=== PATIENT | female | born 1975 | race American Indian/Alaskan Native ===

== ENCOUNTER 2017-06-30 15:59 | Outpatient (CLI) | payer MEDICAID ==
[2017-06-30 17:31] LABS: Bacteria,Urine 3+ /HPF (Negative); Bilirubin,Urine NEG (Negative); Blood,Urine NEG (Negative); Color,Urine Yellow (Yellow); Mucus,Urine FEW /HPF; Protein,Urine <15 mg/dL mg/dL (Negative); Urobilinogen,Urine < 2.0 mg/dL (<2.0)
[2017-06-30 18:51] VITALS: BP 122/56
== END 2017-06-30 19:15 | disposition home or self-care (01) ==
LOC: TRG 15:59
PROVIDERS: ATTEND Obstetrics & Gynecology
DX: O47.03 False labor before 37 completed weeks of gestation, third trimester (principal); Z3A.30 30 weeks gestation of pregnancy
CPT/HCPCS: 59025; 81001

== ENCOUNTER 2017-08-21 00:55 | Outpatient (CLI) | payer MEDICAID ==
[2017-08-21 01:59] VITALS: BP 124/75
== END 2017-08-21 02:06 | disposition home or self-care (01) ==
LOC: TRG 00:55
PROVIDERS: ATTEND Obstetrics & Gynecology
DX: O62.9 Abnormality of forces of labor, unspecified (principal); Z3A.38 38 weeks gestation of pregnancy
CPT/HCPCS: 59025

== ENCOUNTER 2017-08-26 10:29 | Inpatient (IN) | payer MEDICAID ==
[2017-08-26] MEDS ORDERED: STADOL IV PRN (12:17)
[2017-08-26] MEDS ORDERED: BRETHINE IVP PRN ×2 (12:17→12:25)
[2017-08-26] MEDS ORDERED: MINERAL OIL PO PRN ×2 (12:17→12:25)
[2017-08-26] MEDS ORDERED: BRETHINE SUB-Q PRN ×2 (12:17→12:25)
[2017-08-26] MEDS ORDERED: XYLOCAINE 2% INFILTRATI ONE ×2 (12:17→12:25)
[2017-08-26] MEDS ORDERED: CERVIDIL VG ONE (12:17)
[2017-08-26] MEDS ORDERED: SUBLIMAZE IV PRN (12:17)
[2017-08-26] MEDS ORDERED: ePHEDrine SULFATE IV PRN ×2 (12:17→12:25)
[2017-08-26] MEDS ORDERED: NARCAN 0.4 MG/1 ML IV PRN (12:25)
[2017-08-26] MEDS ORDERED: ZOFRAN IV PRN (12:25)
--- NOTE | 2017-08-26 12:25 | History and Physical Report ---
History of Present Illness Date of examination: 08/26/17 Date of admission: 08/26/17 10:29 Chief complaint: Induction of labor History of present illness: Pt is a 41yo BF EDC 09/07/17; EGA 38 2/7 weeks presents from [facility] office for induction of labor due to non-compliant GDM on Glyburide 5mg BID. BPP in office was 8/8 and DEVEN 10.49cm She received care at [facility] since 19 weeks and co-managed by [facility] for GDM, AMA and Morbid Obesity. records are available and GBS is Negative. Past History Past Medical History: diabetes (GDM; ), other (Morbid obesity; AMA) Past Surgical History: no surgical history [employer]PLICATIONS History: abnormal PAP smear, fibroids Family/Genetic History: diabetes, hypertension Social history: no significant social history, single - Obstetrical History Expected Date of Delivery: 09/07/17 Actual Gestation: 38 Week(s) 2 Day(s) : 5 Medications and Allergies Allergies Allergy/AdvReac Type Severity Reaction Status Date / Time shrimp Allergy Itching Verified 08/26/17 12:11 Home Medications Medication Instructions Recorded Confirmed Last Taken Type Docusate Sodium [Dok] 100 mg PO DAILY 06/30/17 08/26/17 08/12/17 History Ferrous Sulfate [Feosol] 325 mg PO BID 06/30/17 08/26/17 08/25/17 18:00 History Vit-Fe Fumar-FA [ 1 tab PO QDAY 06/30/17 08/26/17 08/25/17 09: 00 History Vitamin] Active Meds: Active Medications Butorphanol Tartrate (Stadol) 2 mg IV Q2H PRN PRN Reason: Pain , Severe (7-10) Ephedrine Sulfate (Ephedrine Sulfate) 10 mg IV Q2M PRN PRN Reason: Hypotension Fentanyl (Sublimaze) 100 mcg IV Q2H PRN PRN Reason: Labor Pain Lactated Ringer's (Lactated Ringers) 1,000 mls @ 125 mls/hr IV DIRECT BRIGIDO Oxytocin/Sodium Chloride (Pitocin/Ns 20 Unit/1000ml Drip) 20 units in 1,000 mls @ 125 mls/hr IV DIRECT BRIGIDO Oxytocin/Sodium Chloride (Pitocin/Ns 30 Unit/500ml) 30 units in 500 mls @ 1 mls /hr IV TITR BRIGIDO; Protocol Mineral Oil (Mineral Oil) 30 ml PO QHS PRN PRN Reason: Constipation Terbutaline Sulfate (Brethine) 0.25 mg SUB-Q ONCE PRN PRN Reason: Hyperstimulation/Hypertonicity Terbutaline Sulfate (Brethine) 0.25 mg IVP ONCE PRN PRN Reason: Hyperstimulation/Hypertonicity Review of Systems All systems: negative - Vital Signs Vital signs: Vital Signs Pulse BP Pulse Ox 81 123/75 98 08/26/17 11:12 08/26/17 11:12 08/26/17 11:12 Temp Pulse Resp BP Pulse Ox 81 120/76 95 08/26/17 12:23 08/26/17 12:23 08/26/17 12:23 - Physical Exam Breasts: Positive: deferred Cardiovascular: Regular rate Lungs: Positive: Clear to auscultation Abdomen: Positive: normal appearance Genitourinary (Female): Positive: normal external genitalia Uterus: Positive: enlarged Extremities: Positive: normal - Obstetrical FHR: category 1 Uterine Contraction Monitor Mode: External Cervical Dilatation: 1.5 (per nurse) Cervical Effacement Percentage: 50 (per nurse) station: -3 Uterine Contraction Pattern: Irregular Uterine Tone Measurement Phase: Contraction Uterine Contraction Intensity: Mild Results Result Diagrams: 08/26/17 11:57 08/26/17 11:57 All other labs normal. Ultrasound: report reviewed Assessment and Plan - Patient Problems (1) 38 weeks gestation of Onset Date: 08/26/17 Current Visit: Yes Status: Acute Plan to address problem: A: IUP @ 38 3/7 weeks GDM - uncontrolled on Glyburide 5mg BID AMA Morbid obesity P: Admit for cervidil/pitocin induction per [facility] BS monitoring (2) GDM (gestational diabetes mellitus) Onset Date: 08/26/17 Current Visit: Yes Status: Acute Qualifiers: Gestational diabetes mellitus control: oral hypoglycemic-controlled Trimester: third trimester Qualified Code(s): O24.415 - Gestational diabetes mellitus in , controlled by oral hypoglycemic drugs (3) AMA (advanced maternal age) multigravida 35+ Onset Date: 08/26/17 Current Visit: Yes Status: Acute Qualifiers: Trimester: third trimester Qualified Code(s): O09.523 - Supervision of elderly multigravida, third trimester (4) Morbid obesity with BMI of 40.0-44.9, adult Onset Date: 08/26/17 Current Visit: Yes Status: Chronic (5) UTI (urinary tract infection) in in third trimester Onset Date: 08/26/17 Current Visit: Yes Status: Acute
[2017-08-26] MEDS ORDERED: PITOCin/NS 20 UNIT/1000ML DRIP 20 UNITS/1,000 ML BAG IV SCH ×2 (13:00)
[2017-08-26] MEDS ORDERED: PITOCin/NS 30 UNIT/500ML 30 UNITS/500 ML BAG IV SCH ×3 (13:00)
[2017-08-26] MEDS ORDERED: LACTATED RINGERS 1,000 ML IV SCH ×2 (13:00)
[2017-08-26 13:50] LABS: Hematocrit 33.8 % (30.3-42.9); Hemoglobin 11.5 gm/dl (10.1-14.3); Mean Corpuscular HGB Conc 34 % (30-34); Mean Corpuscular Hemoglobin 33 pg (28-32); Mean Corpuscular Volume 97 fl (79-97); Platelet Count 199 K/mm3 (140-440); Red Cell Distribution Width 13.5 % (13.2-15.2)
[2017-08-26 14:09] LABS: Alanine Aminotransferase 11 units/L (7-56)
[2017-08-26 14:14] LABS: Uric Acid 5.4 mg/dL (3.5-7.6)
[2017-08-26 16:50] LABS: Bacteria,Urine 1+ /HPF (Negative); Bilirubin,Urine NEG (Negative); Blood,Urine SM (Negative); Color,Urine Yellow (Yellow); Mucus,Urine FEW /HPF; Protein,Urine <15 mg/dL mg/dL (Negative); Urobilinogen,Urine < 2.0 mg/dL (<2.0)
[2017-08-26] MEDS ORDERED: ceFAZolin 2 GM in NACL 0.9% 100 ML IV ONE (20:02)
[2017-08-26] MEDS ORDERED: ANCEF/STERILE WATER 2 GM/20 ML 2 GM/20 ML SYRINGE IV ONE (21:00)
[2017-08-27] MEDS ORDERED: ANCEF/NS 1 GM/50 ML 1 GM/50 ML BAG IV SCH (04:00)
[2017-08-27] MEDS: ANCEF/NS 1 GM/50 ML 1 GM/50 ML BAG IV SCH ×2 (07:51→23:14)
--- NOTE | 2017-08-27 08:55 | Progress Note ---
Assessment and Plan - Patient Problems (1) 38 weeks gestation of Onset Date: 08/26/17 Current Visit: Yes Status: Acute Plan to address problem: A: IUP @ 38 4/7 weeks GDM - uncontrolled on Glyburide 5mg BID AMA Morbid obesity P: Continue with pitocin induction per [facility] Expectant vaginal delivery BS monitoring (2) GDM (gestational diabetes mellitus) Onset Date: 08/26/17 Current Visit: Yes Status: Acute Qualifiers: Gestational diabetes mellitus control: oral hypoglycemic-controlled Trimester: third trimester Qualified Code(s): O24.415 - Gestational diabetes mellitus in , controlled by oral hypoglycemic drugs (3) AMA (advanced maternal age) multigravida 35+ Onset Date: 08/26/17 Current Visit: Yes Status: Acute Qualifiers: Trimester: third trimester Qualified Code(s): O09.523 - Supervision of elderly multigravida, third trimester (4) Morbid obesity with BMI of 40.0-44.9, adult Onset Date: 08/26/17 Current Visit: Yes Status: Chronic (5) UTI (urinary tract infection) in in third trimester Onset Date: 08/26/17 Current Visit: Yes Status: Acute Subjective - Subjective Date of service: 08/27/17 Principal diagnosis: IUP @ 38 4/7 weeks; GDM; AMA; MO Interval history: Pt is a 41yo BF EDC 09/07/17; EGA 38 4/7 weeks presented from [facility] office for induction of labor due to non-compliant GDM on Glyburide 5mg BID. BPP was office was 8/8 and was DEVEN 10.49cm She received care at [facility] since 19 weeks and co-managed by [facility] for GDM, AMA and Morbid Obesity. records are available and GBS was Negative. She is currently on pitocin 6mu/min and gianluca q 3-4 mins with SROM clear fluid. Patient reports: loss of fluid (SROM), movement normal, contractions, no new complaints, no vaginal bleeding Objective - Vital Signs Vital Signs: Vital Signs - 12hr 08/26/17 08/26/17 08/26/17 21:06 23:00 23:41 Temperature 98.5 F Pulse Rate 75 Respiratory 16 Rate Blood Pressure 115/58 O2 Sat by Pulse Oximetry 08/26/17 08/26/17 08/26/17 23:49 23:54 23:59 Temperature Pulse Rate 67 96 H 83 Respiratory Rate Blood Pressure 120/68 O2 Sat by Pulse 100 99 Oximetry 08/27/17 08/27/17 08/27/17 00:04 00:09 00:14 Temperature Pulse Rate 78 74 70 Respiratory Rate Blood Pressure O2 Sat by Pulse 98 97 98 Oximetry 08/27/17 08/27/17 08/27/17 00:19 00:24 00:29 Temperature Pulse Rate 72 73 71 Respiratory Rate Blood Pressure O2 Sat by Pulse 97 97 97 Oximetry 08/27/17 08/27/17 08/27/17 00:34 00:39 00:41 Temperature Pulse Rate 71 80 82 Respiratory Rate Blood Pressure O2 Sat by Pulse 97 98 91 Oximetry 08/27/17 08/27/17 08/27/17 00:44 00:49 00:54 Temperature Pulse Rate 85 76 74 Respiratory Rate Blood Pressure 121/71 O2 Sat by Pulse 98 98 98 Oximetry 08/27/17 08/27/17 08/27/17 00:55 00:59 01:04 Temperature Pulse Rate 87 76 79 Respiratory Rate Blood Pressure O2 Sat by Pulse 82 L 98 98 Oximetry 08/27/17 08/27/17 08/27/17 01:09 01:14 01:19 Temperature Pulse Rate 82 67 76 Respiratory Rate Blood Pressure O2 Sat by Pulse 99 96 97 Oximetry 08/27/17 08/27/17 08/27/17 01:24 01:29 01:34 Temperature Pulse Rate 79 69 70 Respiratory Rate Blood Pressure O2 Sat by Pulse 97 96 96 Oximetry 08/27/17 08/27/17 08/27/17 01:39 01:44 01:49 Temperature Pulse Rate 72 69 74 Respiratory Rate Blood Pressure 113/66 O2 Sat by Pulse 96 97 97 Oximetry 08/27/17 08/27/17 08/27/17 01:54 01:59 02:04 Temperature Pulse Rate 76 75 74 Respiratory Rate Blood Pressure O2 Sat by Pulse 99 97 96 Oximetry 08/27/17 08/27/17 08/27/17 02:09 02:11 02:14 Temperature Pulse Rate 73 75 77 Respiratory Rate Blood Pressure O2 Sat by Pulse 95 94 93 Oximetry 08/27/17 08/27/17 08/27/17 02:19 02:24 02:26 Temperature Pulse Rate 77 75 Respiratory Rate Blood Pressure O2 Sat by Pulse 93 92 94 Oximetry 08/27/17 08/27/17 08/27/17 02:29 02:34 02:39 Temperature Pulse Rate 80 80 75 Respiratory Rate Blood Pressure O2 Sat by Pulse 97 97 98 Oximetry 08/27/17 08/27/17 08/27/17 02:44 02:49 02:50 Temperature Pulse Rate 77 74 72 Respiratory Rate Blood Pressure 110/53 O2 Sat by Pulse 98 99 Oximetry 08/27/17 08/27/17 08/27/17 02:54 02:59 03:04 Temperature Pulse Rate 80 74 74 Respiratory Rate Blood Pressure O2 Sat by Pulse 98 98 98 Oximetry 08/27/17 08/27/17 08/27/17 03:09 03:14 03:19 Temperature Pulse Rate 74 76 67 Respiratory Rate Blood Pressure O2 Sat by Pulse 99 97 98 Oximetry 08/27/17 08/27/17 08/27/17 03:24 03:29 03:34 Temperature Pulse Rate 76 70 68 Respiratory Rate Blood Pressure O2 Sat by Pulse 97 98 98 Oximetry 08/27/17 08/27/17 08/27/17 03:39 03:50 03:55 Temperature Pulse Rate 73 73 88 Respiratory Rate Blood Pressure O2 Sat by Pulse 97 98 97 Oximetry 08/27/17 08/27/17 08/27/17 04:00 04:05 04:10 Temperature Pulse Rate 75 69 86 Respiratory Rate Blood Pressure O2 Sat by Pulse 97 98 98 Oximetry 08/27/17 08/27/17 08/27/17 04:24 04:29 04:32 Temperature Pulse Rate 75 76 73 Respiratory Rate Blood Pressure 131/76 O2 Sat by Pulse 99 98 Oximetry 08/27/17 08/27/17 08/27/17 04:34 04:39 04:44 Temperature Pulse Rate 73 81 74 Respiratory Rate Blood Pressure O2 Sat by Pulse 99 98 98 Oximetry 08/27/17 08/27/17 08/27/17 04:49 04:50 04:54 Temperature Pulse Rate 68 73 75 Respiratory Rate Blood Pressure 118/70 O2 Sat by Pulse 98 97 Oximetry 08/27/17 08/27/17 08/27/17 04:59 05:19 05:24 Temperature Pulse Rate 71 69 78 Respiratory Rate Blood Pressure O2 Sat by Pulse 97 97 97 Oximetry 08/27/17 08/27/17 08/27/17 05:29 05:34 05:38 Temperature Pulse Rate 76 70 84 Respiratory Rate Blood Pressure O2 Sat by Pulse 97 95 94 Oximetry 08/27/17 08/27/17 08/27/17 05:39 05:44 05:48 Temperature Pulse Rate 77 71 80 Respiratory Rate Blood Pressure O2 Sat by Pulse 96 95 94 Oximetry 08/27/17 08/27/17 08/27/17 05:49 05:54 05:57 Temperature Pulse Rate 75 78 77 Respiratory Rate Blood Pressure 129/73 O2 Sat by Pulse 94 95 94 Oximetry 08/27/17 08/27/17 08/27/17 05:59 06:04 06:09 Temperature Pulse Rate 74 93 H 70 Respiratory Rate Blood Pressure O2 Sat by Pulse 95 96 98 Oximetry 08/27/17 08/27/17 08/27/17 06:14 06:19 06:24 Temperature Pulse Rate 74 72 79 Respiratory Rate Blood Pressure O2 Sat by Pulse 97 97 96 Oximetry 08/27/17 08/27/17 08/27/17 06:29 06:34 06:39 Temperature Pulse Rate 76 69 79 Respiratory Rate Blood Pressure O2 Sat by Pulse 97 97 98 Oximetry 08/27/17 08/27/17 08/27/17 06:44 06:49 07:07 Temperature Pulse Rate 56 L 73 72 Respiratory Rate Blood Pressure 134/75 O2 Sat by Pulse 78 L 96 97 Oximetry 08/27/17 08/27/17 08/27/17 07:12 07:22 07:37 Temperature 98.3 F Pulse Rate 83 75 Respiratory Rate Blood Pressure O2 Sat by Pulse 96 97 Oximetry 08/27/17 08/27/17 08/27/17 07:49 07:52 08:07 Temperature Pulse Rate 72 70 79 Respiratory Rate Blood Pressure 138/76 O2 Sat by Pulse 97 97 Oximetry 08/27/17 08:22 Temperature Pulse Rate 74 Respiratory Rate Blood Pressure O2 Sat by Pulse 99 Oximetry - Exam Abdomen: Present: normal appearance, soft FHR: category 1 Uterine Contraction Monitor Mode: External Cervical Dilatation: 2 (per nurse) Cervical Effacement Percentage: 50 (per nurse) station: -2 Uterine Contraction Pattern: Regular Uterine Tone Measurement Phase: Contraction Uterine Contraction Intensity: Moderate - Labs Labs: Abnormal Labs 08/26/17 08/26/17 11:57 11:57 RBC 3.50 L MCH 33 H Creatinine 0.6 L Lactate Dehydrogenase 204 H Laboratory Results - last 24 hr 08/26/17 08/26/17 08/26/17 11:57 11:57 11:57 WBC 5.2 RBC 3.50 L Hgb 11.5 Hct 33.8 MCV 97 MCH 33 H MCHC 34 RDW 13.5 Plt Count 199 Creatinine 0.6 L Estimated GFR > 60 POC Glucose Uric Acid 5.4 AST 17 ALT 11 Lactate Dehydrogenase 204 H Urine Color Urine Turbidity Urine pH Ur Specific [place] Urine Protein Urine Glucose (UA) Urine Ketones Urine Blood Urine Nitrite Urine Bilirubin Urine Urobilinogen Ur Leukocyte Esterase Urine WBC (Auto) Urine RBC (Auto) U Epithel Cells (Auto) Urine Bacteria (Auto) Urine Mucus Hep Bs Antigen Blood Type A POSITIVE Antibody Screen Negative 08/26/17 08/26/17 08/26/17 13:08 16:01 17:09 WBC RBC Hgb Hct MCV MCH MCHC RDW Plt Count Creatinine Estimated GFR POC Glucose 100 103 Uric Acid AST ALT Lactate Dehydrogenase Urine Color Yellow Urine Turbidity Clear Urine pH 5.0 Ur Specific [place] 1.013 Urine Protein <15 mg/dl Urine Glucose (UA) Neg Urine Ketones Neg Urine Blood Sm Urine Nitrite Pos Urine Bilirubin Neg Urine Urobilinogen < 2.0 Ur Leukocyte Esterase Neg Urine WBC (Auto) 4.0 Urine RBC (Auto) 2.0 U Epithel Cells (Auto) 1.0 Urine Bacteria (Auto) 1+ Urine Mucus Few Hep Bs Antigen Blood Type Antibody Screen 08/26/17 08/26/17 08/27/17 22:00 23:15 07:12 WBC RBC Hgb Hct MCV MCH MCHC RDW Plt Count Creatinine Estimated GFR POC Glucose 94 96 Uric Acid AST ALT Lactate Dehydrogenase Urine Color Urine Turbidity Urine pH Ur Specific [place] Urine Protein Urine Glucose (UA) Urine Ketones Urine Blood Urine Nitrite Urine Bilirubin Urine Urobilinogen Ur Leukocyte Esterase Urine WBC (Auto) Urine RBC (Auto) U Epithel Cells (Auto) Urine Bacteria (Auto) Urine Mucus Hep Bs Antigen Non-reactive Blood Type Antibody Screen
[2017-08-27] MEDS ORDERED: ePHEDrine SULFATE IV PRN (10:58)
[2017-08-27] MEDS ORDERED: NARCAN 2 MG/2 ML IV PRN (10:58)
--- NOTE | 2017-08-27 10:58 | Anesthesia Consultation ---
Anesthesia Consult and Med Hx Date of service: 08/27/17 - Airway Anesthetic Teeth Evaluation: Good ROM Head & Neck: Adequate Mental/Hyoid Distance: Adequate Mallampati Class: Class III Intubation Access Assessment: Possibly Difficult - Pre-Operative Health Status ASA Pre-Surgery Classification: ASA3 Proposed Anesthetic Plan: Epidural, Spinal - Pulmonary Hx Asthma: No COPD: No Hx Pneumonia: No - Cardiovascular System Hx Hypertension: No - Central Nervous System Hx Seizures: No Hx Psychiatric Problems: No - Endocrine Hx Renal Disease: No Hx End Stage Renal Disease: No Hx Hypothyroidism: No Hx Hyperthyroidism: No - Hematic Hx Anemia: Yes Hx Sickle Cell Disease: No - Other Systems Hx Alcohol Use: No Hx Obesity: Yes (BMI 44.0)
[2017-08-27] MEDS ORDERED: fentaNYL-BUPIV 2 MCG/ML-0.125% 200 MCG/100 ML BAG EPIDURAL SCH (11:00)
[2017-08-27] MEDS ORDERED: XYLOCAINE MPF 2% ONE (14:06)
--- NOTE | 2017-08-27 15:32 | Procedure Note ---
OB Delivery Note - Delivery Date of Delivery: 08/27/17 Surgeon: LEROY ZAZUETA Estimated blood loss: 100cc - Vaginal Delivery presentation: vertex Delivery position: OA Intrapartum events: PROM->1hr before delivery Delivery induction: cervidil Delivery augmentation: rupture of membranes, pitocin Delivery monitor: external FHT, external uterine Route of delivery: Delivery placenta: spontaneous Delivery cord: 3 umbilical vessels Episiotomy: none Delivery laceration: none Anesthesia: epidural Delivery comments: Infant delivered OA and placed on Mom's chest for [id number] bonding and delayed cord clamping, cut by Dad - Infant A at 1 minute: 10 at 5 minutes: 10 Infant Gender: Female (3582gms)
[2017-08-27] MEDS ORDERED: BENADRYL PO PRN (15:35)
[2017-08-27] MEDS ORDERED: ZOFRAN IV PRN (15:35)
[2017-08-27] MEDS ORDERED: MILK OF MAGNESIA PO PRN (15:35)
[2017-08-27] MEDS ORDERED: LANSINOH TP PRN (15:35)
[2017-08-27] MEDS ORDERED: PHENERGAN PR PRN (15:35)
[2017-08-27] MEDS ORDERED: PHENERGAN PO PRN (15:35)
[2017-08-27] MEDS ORDERED: TYLENOL PO PRN (15:35)
[2017-08-27] MEDS ORDERED: TUCKS PAD TP PRN (15:35)
[2017-08-27] MEDS ORDERED: DULCOLAX PR PRN (15:35)
[2017-08-27] MEDS ORDERED: PITOCin/NS 20 UNIT/1000ML DRIP 20 UNITS/1,000 ML BAG IV SCH (16:00)
[2017-08-27] MEDS ORDERED: SODIUM CHLORIDE FLUSH SYRINGE 10 ML IV NR (16:00)
[2017-08-27] MEDS: MOTRIN PO SCH ×2 (18:25→23:12)
[2017-08-27] MEDS: NORCO 5/325 PO PRN (18:25)
[2017-08-27] MEDS: FEOSOL PO SCH (23:24)
[2017-08-27] MEDS: COLACE PO SCH (23:24)
[2017-08-27] MEDS ORDERED: NACL 0.9% 500 ML 500 ML IV SCH (23:45)
[2017-08-28] MEDS: MOTRIN PO SCH ×2 (06:20→11:24)
[2017-08-28 08:34] LABS: Hematocrit 32.3 % (30.3-42.9)
--- NOTE | 2017-08-28 10:01 | Progress Note ---
Assessment and Plan - Patient Problems (1) 38 weeks gestation of Onset Date: 08/26/17 Current Visit: Yes Status: Resolved (2) GDM (gestational diabetes mellitus) Onset Date: 08/26/17 Current Visit: Yes Status: Chronic Qualifiers: Gestational diabetes mellitus control: oral hypoglycemic-controlled Trimester: third trimester Qualified Code(s): O24.415 - Gestational diabetes mellitus in , controlled by oral hypoglycemic drugs (3) AMA (advanced maternal age) multigravida 35+ Onset Date: 08/26/17 Current Visit: Yes Status: Chronic Qualifiers: Trimester: third trimester Qualified Code(s): O09.523 - Supervision of elderly multigravida, third trimester (4) Morbid obesity with BMI of 40.0-44.9, adult Onset Date: 08/26/17 Current Visit: Yes Status: Chronic (5) UTI (urinary tract infection) in in third trimester Onset Date: 08/26/17 Current Visit: Yes Status: Resolved (6) (normal spontaneous vaginal delivery) Onset Date: 08/28/17 Current Visit: Yes Status: Resolved Plan to address problem: A: S/P - PPD #1 Doing well GDM - stable UTI - improved P: May go home today Subjective - Subjective Date of service: 08/28/17 Principal diagnosis: s/p - PPD #1 Interval history: Pt is feeling well without complaints. Bleeding improved. Patient reports: appetite normal, voiding normally, pain well controlled, flatus , ambulating normally, no dizzy ambulation, no nauseated [place]: doing well, nursing well Objective - Vital Signs Latest vital signs: Vital Signs Temp Pulse Resp BP BP Pulse Ox 08/28/17 04:00 98.6 F 76 18 120/79 08/28/17 00:00 98.7 F 68 18 126/69 08/27/17 20:30 98.6 F 81 18 115/68 08/27/17 16:51 70 144/81 08/27/17 16:36 67 144/81 08/27/17 16:21 71 145/81 08/27/17 16:06 70 139/79 08/27/17 15:51 72 141/82 08/27/17 15:36 80 138/76 08/27/17 15:30 98.8 F 08/27/17 15:22 114 H 145/80 07/17/18 15:06 73 111/55 07/17/18 14:51 68 119/55 07/17/18 14:36 81 116/58 07/17/18 14:21 87 133/74 07/17/18 14:12 71 100 07/17/18 14:06 75 125/70 07/17/18 13:57 70 100 07/17/18 13:52 68 124/70 07/17/18 13:42 70 100 07/17/18 13:36 64 131/71 07/17/18 13:30 98.9 F 17/18 13:27 75 100 07/17/18 13:21 68 136/75 07/17/18 13:12 81 98 /17/18 13:06 75 140/77 07/17/18 12:57 68 100 07/17/18 12:53 63 134/70 07/17/18 12:42 67 100 07/17/18 12:36 71 140/71 0717/18 12:27 70 100 07/17/18 12:21 68 126/67 07/17/18 12:12 75 100 07/17/18 12:07 64 138/72 07/17/18 11:57 64 100 07/17/18 11:53 65 129/65 07/17/18 11:42 69 100 07/17/18 11:39 98.7 F 17/18 11:38 76 126/65 07/17/18 11:33 75 133/73 07/17/18 11:31 71 127/73 17/18 11:27 83 142/79 99 17/18 11:24 75 132/76 0717/18 11:21 68 136/80 17/18 11:19 64 76 L 17/18 11:18 72 133/74 17/18 11:15 78 127/71 17/18 11:12 76 135/78 98 /17/18 10:50 66 130/80 07/17/18 10:26 72 138/80 Intake and Output 07/17/18 07/18/18 07/18/18 22:59 06:59 14:59 Intake Total 504.867 Output Total 2800 1400 Balance -2295.133 -1400 Intake: IV 4.867 PITOCin/NS 30 UNIT/500ML 4.867 30 units In 500 ml @ 4 mls/hr IV TITR BRIGIDO Rx#: [id number] Oral 200 Intake, Free Water 300 Output: Urine 2800 1400 Void 2800 1400 Other: Total, Intake Amount 200 Total, Output Amount 800 800 # Voids Void 1 1 Estimated Blood Loss 100 - Exam Breasts: Present: deferred Cardiovascular: Present: Regular rate Lungs: Present: Clear to auscultation Abdomen: Present: normal appearance, soft Uterus: Present: normal, firm, fundal height below umbilicus Extremities: Present: normal - Labs Labs: Abnormal lab results 08/27/17 08/28/17 Range/Units 13:26 01:37 POC Glucose 67 L 143 H (70-105) Laboratory Tests 08/26/17 08/26/17 08/26/17 11:57 11:57 11:57 WBC 5.2 RBC 3.50 L Hgb 11.5 Hct 33.8 MCV 97 MCH 33 H MCHC 34 RDW 13.5 Plt Count 199 Creatinine Estimated GFR POC Glucose Uric Acid AST ALT Lactate Dehydrogenase Urine Color Urine Turbidity Urine pH Ur Specific [place] Urine Protein Urine Glucose (UA) Urine Ketones Urine Blood Urine Nitrite Urine Bilirubin Urine Urobilinogen Ur Leukocyte Esterase Urine WBC (Auto) Urine RBC (Auto) U Epithel Cells (Auto) Urine Bacteria (Auto) Urine Mucus RPR Nonreactive Hep Bs Antigen Blood Type A POSITIVE Antibody Screen Negative 08/26/17 08/26/17 08/26/17 11:57 13:08 16:01 WBC RBC Hgb Hct MCV MCH MCHC RDW Plt Count Creatinine 0.6 L Estimated GFR > 60 POC Glucose 100 Uric Acid 5.4 AST 17 ALT 11 Lactate Dehydrogenase 204 H Urine Color Yellow Urine Turbidity Clear Urine pH 5.0 Ur Specific [place] 1.013 Urine Protein <15 mg/dl Urine Glucose (UA) Neg Urine Ketones Neg Urine Blood Sm Urine Nitrite Pos Urine Bilirubin Neg Urine Urobilinogen < 2.0 Ur Leukocyte Esterase Neg Urine WBC (Auto) 4.0 Urine RBC (Auto) 2.0 U Epithel Cells (Auto) 1.0 Urine Bacteria (Auto) 1+ Urine Mucus Few RPR Hep Bs Antigen Blood Type Antibody Screen 08/26/17 08/26/17 08/26/17 17:09 22:00 23:15 WBC RBC Hgb Hct MCV MCH MCHC RDW Plt Count Creatinine Estimated GFR POC Glucose 103 94 Uric Acid AST ALT Lactate Dehydrogenase Urine Color Urine Turbidity Urine pH Ur Specific [place] Urine Protein Urine Glucose (UA) Urine Ketones Urine Blood Urine Nitrite Urine Bilirubin Urine Urobilinogen Ur Leukocyte Esterase Urine WBC (Auto) Urine RBC (Auto) U Epithel Cells (Auto) Urine Bacteria (Auto) Urine Mucus RPR Hep Bs Antigen Non-reactive Blood Type Antibody Screen 08/27/17 08/27/17 08/28/17 07:12 13:26 01:37 WBC RBC Hgb Hct MCV MCH MCHC RDW Plt Count Creatinine Estimated GFR POC Glucose 96 67 L 143 H Uric Acid AST ALT Lactate Dehydrogenase Urine Color Urine Turbidity Urine pH Ur Specific [place] Urine Protein Urine Glucose (UA) Urine Ketones Urine Blood Urine Nitrite Urine Bilirubin Urine Urobilinogen Ur Leukocyte Esterase Urine WBC (Auto) Urine RBC (Auto) U Epithel Cells (Auto) Urine Bacteria (Auto) Urine Mucus RPR Hep Bs Antigen Blood Type Antibody Screen 08/28/17 08:08 WBC RBC Hgb 11.0 Hct 32.3 MCV MCH MCHC RDW Plt Count Creatinine Estimated GFR POC Glucose Uric Acid AST ALT Lactate Dehydrogenase Urine Color Urine Turbidity Urine pH Ur Specific [place] Urine Protein Urine Glucose (UA) Urine Ketones Urine Blood Urine Nitrite Urine Bilirubin Urine Urobilinogen Ur Leukocyte Esterase Urine WBC (Auto) Urine RBC (Auto) U Epithel Cells (Auto) Urine Bacteria (Auto) Urine Mucus RPR Hep Bs Antigen Blood Type Antibody Screen
[2017-08-28] MEDS: FEOSOL PO SCH (11:23)
[2017-08-28] MEDS: COLACE PO SCH (11:23)
[2017-08-28] MEDS: PRENATAL VITAMIN PO SCH (11:23)
--- NOTE | 2017-08-28 13:23 | Discharge Summary ---
Providers - Providers Date of Admission: 08/26/17 10:29 Date of discharge: 08/28/17 Attending physician: LEROY ZAZUETA Primary care physician: LEROY ZAZUETA Hospitalization Reason for admission: induction of labor, IUP at term Delivery: Episiotomy: none Laceration: none Other procedures: none complications: none Discharge diagnosis: IUP at term delivered [place] baby: female Hospital course: Unremarkable. Condition at discharge: Good Disposition: DC-01 TO HOME OR SELFCARE - Discharge Diagnoses (1) 38 weeks gestation of Status: Resolved (2) GDM (gestational diabetes mellitus) Status: Chronic Qualifiers: Gestational diabetes mellitus control: oral hypoglycemic-controlled Trimester: third trimester Qualified Code(s): O24.415 - Gestational diabetes mellitus in , controlled by oral hypoglycemic drugs (3) AMA (advanced maternal age) multigravida 35+ Status: Chronic Qualifiers: Trimester: third trimester Qualified Code(s): O09.523 - Supervision of elderly multigravida, third trimester (4) Morbid obesity with BMI of 40.0-44.9, adult Status: Chronic (5) UTI (urinary tract infection) in in third trimester Status: Resolved (6) (normal spontaneous vaginal delivery) Status: Resolved Plan - Discharge Medications Prescriptions: Ferrous Sulfate [Feosol 325 MG tab] 325 mg PO BID #60 tablet Ibuprofen [Motrin 600 MG tab] 600 mg PO Q6H #30 tablet Vit-Fe Fumar-FA [ Vitamin] 1 each PO QDAY #30 tablet - Provider Discharge Summary Activity: routine, no sex for 6 weeks, no heavy lifting 4 weeks, no strenuous exercise Diet: routine Instructions: routine Additional instructions: [] Smoking cessation referral if applicable(refer to patient education folder for contact #) [] Refer to [facility] Booklet Call your doctor immediately for: * Fever > 100.5 * Heavy vaginal bleeding ( >1 pad per hour) * Severe persistent headache * Shortness of breath * Reddened, hot, painful area to leg or breast * Drainage or odor from incision. * Keep incision clean and dry at all times and follow doctor's instructions regarding bathing/showering - Follow up plan Follow up: LEROY ZAZUETA MD [Primary Care Provider] - 6 Weeks
[2017-08-28] MEDS: NORCO 5/325 PO PRN (14:33)
[2017-08-28] MEDS ORDERED: BOOSTRIX IM ONE (15:41)
[2017-08-28] MEDS ORDERED: M-M-R II VACCINE SUB-Q ONE (15:41)
[2017-08-28 18:36] VITALS: BP 128/83
== END 2017-08-28 18:30 | disposition home or self-care (01) | DRG 774 ==
LOC: LD 10:29 → OB 08-27 17:37
PROVIDERS: ADMIT Obstetrics & Gynecology; ATTEND Obstetrics & Gynecology
PROC: 10E0XZZ Delivery of Products of Conception, External Approach (ICD-10-PCS; principal; 2017-08-27)
PROC: 3E0R3BZ Introduction of Anesthetic Agent into Spinal Canal, Percutaneous Approach (ICD-10-PCS; 2017-08-27)
PROC: 00HU33Z Insertion of Infusion Device into Spinal Canal, Percutaneous Approach (ICD-10-PCS; 2017-08-27)
PROC: 3E0P7VZ Introduction of Hormone into Female Reproductive, Via Natural or Artificial Opening (ICD-10-PCS; 2017-08-27)
PROC: 3E0234Z Introduction of Serum, Toxoid and Vaccine into Muscle, Percutaneous Approach (ICD-10-PCS; 2017-08-28)
DX: O24.415 Gestational diabetes mellitus in pregnancy, controlled by oral hypoglycemic drugs (principal); O75.3 Other infection during labor; E66.01 Morbid (severe) obesity due to excess calories; Z68.41 Body mass index [BMI] 40.0-44.9, adult; Z71.3 Dietary counseling and surveillance; Z3A.38 38 weeks gestation of pregnancy; Z37.0 Single live birth; O99.214 Obesity complicating childbirth; Z82.49 Family history of ischemic heart disease and other diseases of the circulatory system; Z83.3 Family history of diabetes mellitus; Z91.14 Patient's other noncompliance with medication regimen; Z91.013 Allergy to seafood; O42.02 Full-term premature rupture of membranes, onset of labor within 24 hours of rupture; Z23 Encounter for immunization
CPT/HCPCS: 36415; 59200; 81001; 82565; 82962; 83615; 84450; 84460; 84550; 85014; 85018; 85027; 86592; 86706; 86850; 86900; 86901; 87086; 99211; G0463; J0595; J0690; J2590; J3010; J7040; J7120

== ENCOUNTER 2017-09-06 13:22 | Emergency (ER) | payer MEDICAID ==
[2017-09-06] MEDS ORDERED: ASPIRIN PO ONE (14:01)
[2017-09-06 15:06] LABS: Basophils % (Auto) 0.8 % (0.0-1.8); Eosinophils % (Auto) 0.7 % (0.0-4.3); Hematocrit 38.1 % (30.3-42.9); Hemoglobin 12.9 gm/dl (10.1-14.3); Lymphocytes # (Auto) 1.1 K/mm3 (1.2-5.4); Mean Corpuscular HGB Conc 34 % (30-34); Mean Corpuscular Hemoglobin 32 pg (28-32); Mean Corpuscular Volume 96 fl (79-97); Monocytes # (Auto) 0.3 K/mm3 (0.0-0.8); Monocytes % (Auto) 6.3 % (0.0-7.3); Platelet Count 243 K/mm3 (140-440); Red Blood Count 3.97 M/mm3 (3.65-5.03); Red Cell Distribution Width 13.4 % (13.2-15.2)
[2017-09-06 15:28] LABS: BUN/Creatinine Ratio 16; Blood Urea Nitrogen 11 mg/dL (7-17); Calcium 8.7 mg/dL (8.4-10.2); Hemolysis Index 1
[2017-09-06] MEDS ORDERED: CATAPRES PO ONE (16:07)
--- NOTE | 2017-09-06 16:09 | Emergency Department Report ---
Blank Doc - Documentation Documentation: Patient is a 5-year-old [place] female who is presenting with some mild chest tightness as well as some neck discomfort for the past day. Patient and taken her blood pressure at home as been elevated and she decided to come in for evaluation. Patient is 10 days . Patient did deliver here OB is Dr. Child. Patient is denying shortness of breath headache fevers chills nausea vomiting at this time. Patient be moved to a treatment room for further evaluation
[2017-09-06 18:47] LABS: Bilirubin,Urine NEG (Negative); Blood,Urine MOD (Negative); Color,Urine Yellow (Yellow); Protein,Urine <15 mg/dL mg/dL (Negative); Urobilinogen,Urine < 2.0 mg/dL (<2.0)
--- NOTE | 2017-09-06 20:00 | Cat Scan Report ---
FINAL REPORT EXAM: CT ANGIO CHEST HISTORY: pulmonary emboli TECHNIQUE: Following IV administration of 100 cc of Omnipaque 350 axial helical imaging was performed through the chest with maximum intensity projection images obtained. Comparison: None FINDINGS: There are small bilateral pleural fluid collections. There is no evidence of infiltrate or pneumothorax. The trachea and bronchi are patent. The heart is enlarged. The thoracic aorta is normal caliber. There is no evidence of intrathoracic adenopathy. No filling defects are demonstrated within the pulmonary arteries to suggest the presence of pulmonary artery emboli. The bony structures are notable for spondylitic change of the thoracic spine. The visualized portion of the upper abdomen is unremarkable. IMPRESSION: 1. Small bilateral pleural effusions. 2. No evidence of pulmonary artery emboli. 3. Cardiomegaly. 4. Spondylitic change thoracic spine.
--- NOTE | 2017-09-06 20:26 | Emergency Department Report ---
ED General Adult HPI - General Chief complaint: Chest Pain Stated complaint: HIGH BP,CHEST PAIN Time Seen by Provider: 09/06/17 16:02 Source: patient Mode of arrival: Ambulatory Limitations: No Limitations - History of Present Illness Initial comments: Patient presents to emergency department with a chief complaint of chest pain. The patient is 10 days status post vaginal delivery and has also knows that her blood pressure is elevated. Patient states she had no issues with blood pressure prior to or during her and only had a diagnosis of gestational diabetes during . She describes an uncomplicated . Patient states her blood pressure was 170/100 at [facility]. -: Sudden Radiation: non-radiation Severity scale (0 -10): 3 Consistency: constant Improves with: none Worsens with: none Associated Symptoms: denies other symptoms Treatments Prior to Arrival: none - Related Data Home Medications Medication Instructions Recorded Confirmed Last Taken Docusate Sodium [Dok] 100 mg PO DAILY 06/30/17 08/26/17 08/12/17 Ferrous Sulfate [Feosol] 325 mg PO BID 06/30/17 08/26/17 08/25/17 18:00 Vit-Fe Fumar-FA [ 1 tab PO QDAY 06/30/17 08/26/17 08/25/17 09: 00 Vitamin] Previous Rx's Medication Instructions Recorded Last Taken Type Ferrous Sulfate [Feosol 325 MG tab] 325 mg PO BID #60 tablet 08/28/17 Unknown Rx Ibuprofen [Motrin 600 MG tab] 600 mg PO Q6H #30 tablet 08/28/17 Unknown Rx Vit-Fe Fumar-FA [ 1 each PO QDAY #30 tablet 08/28/17 Unknown Rx Vitamin] Labetalol [Normodyne TAB] 100 mg PO BID #20 tablet 09/06/17 Unknown Rx Allergies Allergy/AdvReac Type Severity Reaction Status Date / Time shrimp Allergy Itching Verified 08/26/17 12:11 ED Review of Systems ROS: Stated complaint: HIGH BP,CHEST PAIN Other details as noted in HPI Comment: All other systems reviewed and negative Constitutional: denies: chills, fever Eyes: denies: eye pain, eye discharge, vision change ENT: denies: ear pain, throat pain Respiratory: denies: cough, shortness of breath, wheezing Cardiovascular: chest pain. denies: palpitations Endocrine: no symptoms reported Gastrointestinal: denies: abdominal pain, nausea, diarrhea Genitourinary: denies: urgency, dysuria, discharge Musculoskeletal: denies: back pain, joint swelling, arthralgia Skin: denies: rash, lesions Neurological: denies: headache, weakness, paresthesias Psychiatric: denies: anxiety, depression Hematological/Lymphatic: denies: easy bleeding, easy bruising ED Past Medical Hx - Past Medical History Hx Hypertension: No Hx Congestive Heart Failure: No Hx Diabetes: No Hx Deep Vein Thrombosis: No Hx Renal Disease: No Hx Sickle Cell Disease: No Hx Seizures: No Hx Asthma: No Hx COPD: No Hx HIV: No - Social History Smoking Status: Never Smoker Substance Use Type: None - Medications Home Medications: Home Medications Medication Instructions Recorded Confirmed Last Taken Type Docusate Sodium [Dok] 100 mg PO DAILY 06/30/17 08/26/17 08/12/17 History Ferrous Sulfate [Feosol] 325 mg PO BID 06/30/17 08/26/17 08/25/17 18:00 History Vit-Fe Fumar-FA [ 1 tab PO QDAY 06/30/17 08/26/17 08/25/17 09: 00 History Vitamin] Ferrous Sulfate [Feosol 325 MG tab] 325 mg PO BID #60 tablet 08/28/17 Unknown Rx Ibuprofen [Motrin 600 MG tab] 600 mg PO Q6H #30 tablet 08/28/17 Unknown Rx Vit-Fe Fumar-FA [ 1 each PO QDAY #30 tablet 08/28/17 Unknown Rx Vitamin] Labetalol [Normodyne TAB] 100 mg PO BID #20 tablet 09/06/17 Unknown Rx ED Physical Exam - General Limitations: No Limitations General appearance: alert, in no apparent distress - Head Head exam: Present: atraumatic, normocephalic - Eye Eye exam: Present: normal appearance, PERRL, EOMI. Absent: scleral icterus, conjunctival injection, periorbital swelling - ENT ENT exam: Present: mucous membranes moist - Neck Neck exam: Present: normal inspection, full ROM - Respiratory Respiratory exam: Present: normal lung sounds bilaterally. Absent: respiratory distress, wheezes, rales, rhonchi - Cardiovascular Cardiovascular Exam: Present: regular rate, normal rhythm. Absent: systolic murmur, diastolic murmur, rubs, gallop - GI/Abdominal GI/Abdominal exam: Present: soft, normal bowel sounds. Absent: distended, tenderness - Rectal Rectal exam: Present: deferred - Extremities Exam Extremities exam: Present: normal inspection, pedal edema - Back Exam Back exam: Present: normal inspection - Neurological Exam Neurological exam: Present: alert, oriented X3, CN II-XII intact, normal gait, motor sensory deficit, reflexes normal - Psychiatric Psychiatric exam: Present: normal affect, normal mood - Skin Skin exam: Present: warm, dry, intact, normal color. Absent: rash ED Course Vital Signs 09/06/17 09/06/17 09/06/17 13:56 18:47 19:15 Temperature 98.9 F 98.1 F Pulse Rate 76 63 Respiratory 16 16 15 Rate Blood Pressure 175/103 Blood Pressure 186/107 [Left] O2 Sat by Pulse 98 98 99 Oximetry ED Medical Decision Making - Lab Data Result diagrams: 09/06/17 14:57 09/06/17 14:57 - EKG Data EKG shows normal: sinus rhythm Rate: normal - EKG Data When compared to previous EKG there are: no significant change Interpretation: no acute changes, normal EKG - Medical Decision Making Discussed results with the patient Spoke with Dr. Ledesma and the patient was discussed and patient will go home on labetalol Critical care attestation.: If time is entered above; I have spent that time in minutes in the direct care of this critically ill patient, excluding procedure time. ED Disposition Clinical Impression: Elevated BP without diagnosis of hypertension Disposition: DC-01 TO HOME OR SELFCARE Is pt being admited?: No Does the pt Need Aspirin: No Condition: Stable Instructions: Pre-eclampsia and Eclampsia (ED) Additional Instructions: Return if worse Prescriptions: Labetalol [Normodyne TAB] 100 mg PO BID #20 tablet Referrals: PRIMARY CARE, [Primary Care Provider] - 3-5 Days Time of Disposition: 20:27
[2017-09-06 20:52] VITALS: BP 158/89
== END 2017-09-06 20:53 | disposition home or self-care (01) ==
LOC: ED 13:22
DX: R03.0 Elevated blood-pressure reading, without diagnosis of hypertension (principal); Z91.013 Allergy to seafood
CPT/HCPCS: 36415; 71275; 80048; 81001; 83735; 84100; 84484; 85025; 99284; Q9967

== ENCOUNTER 2018-12-16 08:35 | Emergency (ER) | payer MEDICAID ==
[2018-12-16 09:57] LABS: Basophils % (Auto) 0.3 % (0.0-1.8); Eosinophils % (Auto) 0.2 % (0.0-4.3); Hemoglobin 11.9 gm/dl (10.1-14.3); Lymphocytes # (Auto) 0.9 K/mm3 (1.2-5.4); Lymphocytes % (Auto) 18.1 % (13.4-35.0); Mean Corpuscular HGB Conc 35 % (30-34); Mean Corpuscular Volume 94 fl (79-97); Monocytes # (Auto) 0.3 K/mm3 (0.0-0.8); Monocytes % (Auto) 6.1 % (0.0-7.3); Platelet Count 222 K/mm3 (140-440); Red Cell Distribution Width 12.6 % (13.2-15.2)
[2018-12-16 10:23] LABS: Alanine Aminotransferase 9 units/L (7-56); Albumin 3.6 g/dL (3.9-5); BUN/Creatinine Ratio 18; Blood Urea Nitrogen 11 mg/dL (7-17); Calcium 8.7 mg/dL (8.4-10.2); Hemolysis Index 3
--- NOTE | 2018-12-16 10:40 | Ultrasound Report ---
FIRSTTRIMESTER OBSTETRIC ULTRASOUND HISTORY: Abdominal pain during , 10 week gestation COMPARISON: None. TECHNIQUE: Routine transabdominal OB ultrasound performed. FINDINGS: Uterus: Mildly enlarged measuring 14.0 x 8.7 x 9.1 cm. Gestational Sac: Well-defined oval shape and intrauterine in location. Yolk Sac: Normal in appearance. Fetus/Embryo: [place]-rump length of 3.39 cm, corresponding to an estimated gestational age of 10 week 2 day. Embryonic/ anatomy is too small for evaluation. Embryonic/ cardiac activity: 166bpm Placenta: Too small for evaluation. Amniotic fluid volume: Subjectively appropriate for gestational age. Ovaries: The right ovary is normal in size and appearance with normal blood flow, measuring 2.0 x 1. 8 x 2.2 cm. The left ovary is normal in size and appearance with normal blood flow, measuring 2.6 x 1.9 x 2.3 cm. A 1.1 cm left ovarian cyst is identified. Additional findings: None. IMPRESSION Early live intrauterine . No acute abnormality is detected. 1.1 cm left ovarian cyst. Signer Name: Te Sutton Jr, MD Signed: 12/16/2018 10:36 AM Workstation Name: [id number]
[2018-12-16] MEDS ORDERED: POTASSIUM CHLORIDE ER 20 MEQ TAB PO ONE (11:40)
[2018-12-16] MEDS ORDERED: ACETAMINOPHEN 325 MG TAB PO ONE (11:40)
[2018-12-16 11:48] LABS: Bacteria,Urine 4+ /HPF (Negative); Bilirubin,Urine NEG (Negative); Blood,Urine NEG (Negative); Color,Urine Yellow (Yellow); Mucus,Urine 2+ /HPF; Protein,Urine <15 mg/dL mg/dL (Negative); Urobilinogen,Urine < 2.0 mg/dL (<2.0)
--- NOTE | 2018-12-16 12:01 | Emergency Department Report ---
ED General Adult HPI - General Chief complaint: Abdominal Pain Stated complaint: BACK/ABD PAIN/10 WKS PREG Time Seen by Provider: 12/16/18 11:29 Source: patient Mode of arrival: Ambulatory Limitations: No Limitations - History of Present Illness Initial comments: Patient is a 43-year-old female presents emergency room with complaints of right lower back pain that began a few days ago. she states that she also has pressure in her lower abdomen. Patient has associated urinary frequency. She denies any dysuria, vaginal discharge, vaginal bleeding, nausea, vomiting, diarrhea, fever. pt is tolerating PO intake. she is currently 10 weeks . she states that her CHALK CUTTER is at [facility]. she has not yet had an US. She denies any past medical history or allergies medications. /P:5/A:0. she states she had preeclampsia and gestation DM in prior pregnancies. Severity scale (0 -10): 7 - Related Data Home Medications Medication Instructions Recorded Confirmed Last Taken Ferrous Sulfate [Feosol] 325 mg PO BID 06/30/17 12/04/17 08/25/17 18:00 Previous Rx's Medication Instructions Recorded Last Taken Type Vit-Fe Fumar-FA [ 1 each PO QDAY #30 tablet 08/28/17 Unknown Rx Vitamin] Acetaminophen [Tylenol] 975 mg PO Q8HR PRN #21 capsule 12/16/18 Unknown Rx Cyclobenzaprine HCl [Flexeril 5 MG 5 mg PO QHS PRN #3 tablet 12/16/18 Unknown Rx TAB] Allergies Allergy/AdvReac Type Severity Reaction Status Date / Time shrimp Allergy Itching Verified 08/26/17 12:11 ED Review of Systems ROS: Stated complaint: BACK/ABD PAIN/10 WKS PREG Other details as noted in HPI Comment: All other systems reviewed and negative ED Past Medical Hx - Past Medical History Previous Medical History?: Yes Hx Hypertension: (Elevated BP briefly after delivery) Hx Congestive Heart Failure: No Hx Diabetes: Yes (Gestational-resolved) Hx Deep Vein Thrombosis: No Hx GERD: Yes Hx Renal Disease: No Hx Sickle Cell Disease: No Hx Headaches / Migraines: Yes (migraines) Hx Seizures: No Hx Asthma: No Hx COPD: No Hx HIV: No - Surgical History Past Surgical History?: No - Social History Smoking Status: Never Smoker Substance Use Type: None - Medications Home Medications: Home Medications Medication Instructions Recorded Confirmed Last Taken Type Ferrous Sulfate [Feosol] 325 mg PO BID 06/30/17 12/04/17 08/25/17 18:00 History Vit-Fe Fumar-FA [ 1 each PO QDAY #30 tablet 08/28/17 12/04/17 Unknown Rx Vitamin] Acetaminophen [Tylenol] 975 mg PO Q8HR PRN #21 capsule 12/16/18 Unknown Rx Cyclobenzaprine HCl [Flexeril 5 MG 5 mg PO QHS PRN #3 tablet 12/16/18 Unknown Rx TAB] ED Physical Exam - General Limitations: No Limitations General appearance: alert, in no apparent distress - Head Head exam: Present: atraumatic, normocephalic - Eye Eye exam: Present: normal appearance - ENT ENT exam: Present: mucous membranes moist - Respiratory Respiratory exam: Present: normal lung sounds bilaterally. Absent: respiratory distress, wheezes, rales, rhonchi, stridor, chest wall tenderness, accessory muscle use, decreased breath sounds, prolonged expiratory - Cardiovascular Cardiovascular Exam: Present: regular rate, normal rhythm, normal heart sounds. Absent: systolic murmur, diastolic murmur, rubs, gallop - GI/Abdominal GI/Abdominal exam: Present: soft, normal bowel sounds, other (gravid). Absent: distended, tenderness, guarding, rebound, rigid - Back Exam Back exam: Absent: CVA tenderness (R), CVA tenderness (L), paraspinal tenderness, vertebral tenderness - Neurological Exam Neurological exam: Present: alert, oriented X3 - Psychiatric Psychiatric exam: Present: normal affect, normal mood - Skin Skin exam: Present: warm, dry, intact ED Course Vital Signs 12/16/18 12/16/18 08:41 13:56 Temperature 98.9 F Pulse Rate 80 88 Respiratory 18 16 Rate Blood Pressure 158/85 Blood Pressure 134/78 [Right] O2 Sat by Pulse 99 99 Oximetry ED Medical Decision Making - Lab Data Result diagrams: 12/16/18 09:36 12/16/18 09:36 Lab Results 12/16/18 12/16/18 12/16/18 Range/Units 09:36 09:36 09:36 WBC 5.2 (4.5-11.0) K/mm3 RBC 3.60 L (3.65-5.03) M/mm3 Hgb 11.9 (10.1-14.3) gm/dl Hct 34.0 (30.3-42.9) % MCV 94 (79-97) fl MCH 33 H (28-32) pg MCHC 35 H (30-34) % RDW 12.6 L (13.2-15.2) % Plt Count 222 (140-440) K/mm3 Lymph % (Auto) 18.1 (13.4-35.0) % Rowan % (Auto) 6.1 (0.0-7.3) % Eos % (Auto) 0.2 (0.0-4.3) % Baso % (Auto) 0.3 (0.0-1.8) % Lymph # 0.9 L (1.2-5.4) K/mm3 Rowan # 0.3 (0.0-0.8) K/mm3 Eos # 0.0 (0.0-0.4) K/mm3 Baso # 0.0 (0.0-0.1) K/mm3 Seg Neutrophils % 75.3 H (40.0-70.0) % Seg Neutrophils # 3.9 (1.8-7.7) K/mm3 Sodium 133 L (137-145) mmol/L Potassium 3.1 L (3.6-5.0) mmol/L Chloride 100.5 (98-107) mmol/L Carbon Dioxide 21 L (22-30) mmol/L Anion Gap 15 mmol/L BUN 11 (7-17) mg/dL Creatinine 0.6 L (0.7-1.2) mg/dL Estimated GFR > 60 ml/min BUN/Creatinine Ratio 18 % Glucose 159 H (65-100) mg/dL Calcium 8.7 (8.4-10.2) mg/dL Total Bilirubin 0.50 (0.1-1.2) mg/dL AST 14 (5-40) units/L ALT 9 (7-56) units/L Alkaline Phosphatase 56 (35-129) units/L Total Protein 7.3 (6.3-8.2) g/dL Albumin 3.6 L (3.9-5) g/dL Albumin/Globulin Ratio 1.0 % HCG, Qual Positive (Negative) HCG, Quant (0-4) mIU/mL Urine Color (Yellow) Urine Turbidity (Clear) Urine pH (5.0-7.0) Ur Specific Jackson (1.003-1.030) Urine Protein (Negative) mg/dL Urine Glucose (UA) (Negative) mg/dL Urine Ketones (Negative) mg/dL Urine Blood (Negative) Urine Nitrite (Negative) Urine Bilirubin (Negative) Urine Urobilinogen (<2.0) mg/dL Ur Leukocyte Esterase (Negative) Urine WBC (Auto) (0.0-6.0) /HPF Urine RBC (Auto) (0.0-6.0) /HPF U Epithel Cells (Auto) (0-13.0) /HPF Urine Bacteria (Auto) (Negative) /HPF Urine Mucus /HPF 12/16/18 12/16/18 Range/Units 10:31 12:14 WBC (4.5-11.0) K/mm3 RBC (3.65-5.03) M/mm3 Hgb (10.1-14.3) gm/dl Hct (30.3-42.9) % MCV (79-97) fl MCH (28-32) pg MCHC (30-34) % RDW (13.2-15.2) % Plt Count (140-440) K/mm3 Lymph % (Auto) (13.4-35.0) % Rowan % (Auto) (0.0-7.3) % Eos % (Auto) (0.0-4.3) % Baso % (Auto) (0.0-1.8) % Lymph # (1.2-5.4) K/mm3 Rowan # (0.0-0.8) K/mm3 Eos # (0.0-0.4) K/mm3 Baso # (0.0-0.1) K/mm3 Seg Neutrophils % (40.0-70.0) % Seg Neutrophils # (1.8-7.7) K/mm3 Sodium (137-145) mmol/L Potassium (3.6-5.0) mmol/L Chloride (98-107) mmol/L Carbon Dioxide (22-30) mmol/L Anion Gap mmol/L BUN (7-17) mg/dL Creatinine (0.7-1.2) mg/dL Estimated GFR ml/min BUN/Creatinine Ratio % Glucose (65-100) mg/dL Calcium (8.4-10.2) mg/dL Total Bilirubin (0.1-1.2) mg/dL AST (5-40) units/L ALT (7-56) units/L Alkaline Phosphatase (35-129) units/L Total Protein (6.3-8.2) g/dL Albumin (3.9-5) g/dL Albumin/Globulin Ratio % HCG, Qual (Negative) HCG, Quant 51550 H (0-4) mIU/mL Urine Color Yellow (Yellow) Urine Turbidity Slightly-cloudy (Clear) Urine pH 5.0 (5.0-7.0) Ur Specific Jackson 1.024 (1.003-1.030) Urine Protein <15 mg/dl (Negative) mg/dL Urine Glucose (UA) Neg (Negative) mg/dL Urine Ketones Neg (Negative) mg/dL Urine Blood Neg (Negative) Urine Nitrite Pos (Negative) Urine Bilirubin Neg (Negative) Urine Urobilinogen < 2.0 (<2.0) mg/dL Ur Leukocyte Esterase Neg (Negative) Urine WBC (Auto) 3.0 (0.0-6.0) /HPF Urine RBC (Auto) 2.0 (0.0-6.0) /HPF U Epithel Cells (Auto) 6.0 (0-13.0) /HPF Urine Bacteria (Auto) 4+ (Negative) /HPF Urine Mucus 2+ /HPF Vital Signs 12/16/18 12/16/18 08:41 13:56 Temperature 98.9 F Pulse Rate 80 88 Respiratory 18 16 Rate Blood Pressure 158/85 Blood Pressure 134/78 [Right] O2 Sat by Pulse 99 99 Oximetry - Radiology Data Radiology results: report reviewed FIRSTTRIMESTER OBSTETRIC ULTRASOUND HISTORY: Abdominal pain during , 10 week gestation COMPARISON: None. TECHNIQUE: Routine transabdominal OB ultrasound performed. FINDINGS: Uterus: Mildly enlarged measuring 14.0 x 8.7 x 9.1 cm. Gestational Sac: Well-defined oval shape and intrauterine in location. Yolk Sac: Normal in appearance. Fetus/Embryo: [place]-rump length of 3.39 cm, corresponding to an estimated gestational age of 10 week 2 day. Embryonic/ anatomy is too small for evaluation. Embryonic/ cardiac activity: 166bpm Placenta: Too small for evaluation. Amniotic fluid volume: Subjectively appropriate for gestational age. Ovaries: The right ovary is normal in size and appearance with normal blood flow, measuring 2.0 x 1.8 x 2.2 cm. The left ovary is normal in size and appearance with normal blood flow, measuring 2.6 x 1.9 x 2.3 cm. A 1.1 cm left ovarian cyst is identified. Additional findings: None. IMPRESSION Early live intrauterine . No acute abnormality is detected. 1.1 cm left ovarian cyst. Signer Name: Te Luna Jr, MD Signed: 12/16/2018 10:36 AM Workstation Name: [id number] Transcribed By: TTR Dictated By: TE LUNA JR, MD Electronically Authenticated By: TE LUNA JR, MD Signed Date/Time: 12/16/18 1036 - Medical Decision Making Patient is a 43-year-old female presents emergency room with complaints of right lower back pain that began a few days ago. she states that she also has pressure in her lower abdomen. Patient has associated urinary frequency. She denies any dysuria, vaginal discharge, vaginal bleeding, nausea, vomiting, diarrhea, fever. pt is tolerating PO intake. she is currently 10 weeks . she states that her CHALK CUTTER is at [facility]. she has not yet had an US. She denies any past medical history or allergies medications. /P:5/A:0. she states she had preeclampsia and gestation DM in prior pregnancies. initial vitals with mildly elevated BP which improved upon repeat. no abd tenderness on examination. OB US: Early live intrauterine . No acute abnormality is detected. 1.1 cm left ovarian cyst. CBC is stable. CMP with hypokalemia and mildly elevated glucose. pt given kdur for hypokalemia. hcg quant [id number]. UA without evidence of UTI. discussed all results with pt. pt given tylenol and 5 mg of flexeril and discomfort in her right lower back improved. pt given prescription for tylenol and a very short course of flexeril. advised pt to Please take medication as prescribed as needed. Do not drive or operate machinery while taking muscle relaxer. Do not breast-feed while taking muscle relaxer. Increase your water intake. May use ice pack, heating pad, rest, Epsom salt bath. Follow-up with your CHALK CUTTER in the next 2-3 days for reexamination. return to the emergency room for any new or worsening symptoms. discussed with pt not to breastfeed 48 hours after taking medication. - Differential Diagnosis strain, sciatica, nephrolithiasis, UTI, IUP, ectopic, placenta previa Critical care attestation.: If time is entered above; I have spent that time in minutes in the direct care of this critically ill patient, excluding procedure time. ED Disposition Clinical Impression: Hypokalemia Low back pain Qualifiers: Chronicity: acute Back pain laterality: right Sciatica presence: without sciatica Qualified Code(s): M54.5 - Low back pain Abdominal pain Qualifiers: Abdominal location: lower abdomen, unspecified Qualified Code(s): R10.30 - Lower abdominal pain, unspecified Qualifiers: Weeks of gestation: 10 weeks Qualified Code(s): Z3A.10 - 10 weeks gestation of Ovarian cyst Qualifiers: Laterality: left Qualified Code(s): N83.202 - Unspecified ovarian cyst, left side Disposition: - TO HOME OR SELFCARE Is pt being admited?: No Does the pt Need Aspirin: No Condition: Stable Instructions: Hypokalemia (ED), Acute Low Back Pain (ED), Abdominal Pain in (ED) Additional Instructions: Please take medication as prescribed as needed. Do not drive or operate machinery while taking muscle relaxer. Do not breast-feed while taking muscle relaxer. Increase your water intake. May use ice pack, heating pad, rest, Epsom salt bath. Follow-up with your CHALK CUTTER in the next 2-3 days for reexamination. return to the emergency room for any new or worsening symptoms. Prescriptions: Cyclobenzaprine HCl [Flexeril 5 MG TAB] 5 mg PO QHS PRN #3 tablet PRN Reason: Muscle Spasm Acetaminophen [Tylenol] 975 mg PO Q8HR PRN #21 capsule PRN Reason: pain Referrals: [facility] [Provider Group] - 2-3 Days Time of Disposition: 13:38 Print Language: SRI LANKAN
[2018-12-16] MEDS ORDERED: CYCLOBENZAPRINE 10 MG TAB PO ONE (13:34)
[2018-12-16 13:56] VITALS: BP 134/78
== END 2018-12-16 14:05 | disposition home or self-care (01) ==
LOC: ED 08:35
DX: O34.81 Maternal care for other abnormalities of pelvic organs, first trimester (principal); N83.202 Unspecified ovarian cyst, left side; M54.5 Low back pain; E87.6 Hypokalemia; O99.351 Diseases of the nervous system complicating pregnancy, first trimester; G43.909 Migraine, unspecified, not intractable, without status migrainosus; K21.9 Gastro-esophageal reflux disease without esophagitis; Z91.013 Allergy to seafood; Z79.899 Other long term (current) drug therapy; Z3A.10 10 weeks gestation of pregnancy
CPT/HCPCS: 36415; 76801; 80053; 81001; 84702; 84703; 85025; 99284